=== PATIENT | female | born 1950 | race Caucasian/White ===

== ENCOUNTER 2021-07-07 09:04 | Day surgery (SDC) | payer MEDICARE ==
[~2021-07-07] VITALS: Ht 172.7 cm; Wt 59.6 kg
[2021-07-07] MEDS ORDERED: ACET-1025 PO (09:36)
[2021-07-07] MEDS ORDERED: CYAN-34 PO (09:36)
[2021-07-07 09:43] VITALS: BP 122/63
[2021-07-07] MEDS ORDERED: LIDOCAINE 2%/EPI 1:100,000 inj. Multi-dose 20 ML VIAL IJ ONE (09:45)
[2021-07-07 11:23] VITALS: BP 125/71
[2021-07-07 11:39] VITALS: BP 116/77
[2021-07-07 11:53] VITALS: BP 123/71
[2021-07-07 12:09] VITALS: BP 125/70
== END 2021-07-07 12:25 | disposition home or self-care (01) ==
LOC: SSTAY O 09:04
PROVIDERS: ATTEND Preventive Medicine Aerospace Medicine
DX: Z45.2 Encounter for adjustment and management of vascular access device (principal); Z85.42 Personal history of malignant neoplasm of other parts of uterus
CPT/HCPCS: 36590